=== PATIENT | female | born 1965 | race Caucasian/White ===

== ENCOUNTER 2018-03-04 12:31 | Inpatient (IN) | payer OTHER, SELFPAY ==
[2018-03-04] VITALS (8 sets, daily range): BP systolic 120–152; BP diastolic 71–106; PULSE 85–98; RESP 16–19; TEMP 36.4–36.9; O2SAT 98–100; BMI 32.8; BMI 33.9
--- NOTE | 2018-03-04 13:03 | EKG12_ITS ---
Test Reason : SUBS ABUSE Blood Pressure : / mmHG Vent. Rate : 084 BPM Atrial Rate : 084 BPM P-R Int : 196 ms QRS Dur : 086 ms QT Int : 400 ms P-R-T Axes : 053 030 062 degrees QTc Int : 472 ms Normal sinus rhythm Nonspecific ST segment abnormality Confirmed by SANTIAGO PONCE, CHARISSE ([id number]), scientific editor JOSEF YI ([id number] on 03/07/2018 1:15:11 PM Referred By: QAMAR Confirmed By:CHARISSE HENDERSON MD
--- NOTE | 2018-03-04 13:07 | ED.RN ---
NO OLD EKG'S IN MUSE.
[2018-03-04] MEDS: Ondansetron ODT 4 MG Tablet PO (13:10)
[2018-03-04] MEDS: LORazepam 1 MG Tablet PO (13:11)
[2018-03-04 13:58] LABS: Absolute Lymphocyte Count 1.01 X10^3/ul (0.83-4.51); Absolute Neutrophil Count 6.5 X10^3/uL (2.0-7.7); Basophil# 0.03 X10^3/uL; Basophil% 0.4 % (0-1); Eosinophil# 0.05 X10^3/uL; Eosinophils% 0.6 % (0-5); Hematocrit 39.1 % (37-47); Hemoglobin 14.1 g/dl (12.0-15.0); Lymphocyte # 1.01 X10^3/ul (4.0); Lymphocyte % 12.5 % (19-41); Mean Corp Hgb Conc 36.1 g/gl (32-36); Mean Corpuscular Hgb 31.8 pg (27.0-32.0); Mean Corpuscular Volume 88.3 fL (81-99); Mean Platelet Vol. 8.2 fl (6.2-12.0); Monocyte# 0.46 X10^3/uL; Monocyte% 5.7 % (0-10); Neutrophil # 6.48 X10^3/uL (2.7-7.7); Neutrophil % 80.4 % (47-70); POSITIVE COUNT NO; POSITIVE DIFFERENTIAL NO; POSITIVE MORPHOLOGY NO; Platelet Count 418 K/mm3 (150-450); RBC Distribution Width CV 12.6 % (11.6-14.6); RBC Distribution Width SD 40.4 fl (35.1-43.9); Red Blood Count 4.43 M/mm3 (4.2-5.4); White Blood Count 8.1 K/mm3 (4.4-11.0)
[2018-03-04 14:18] LABS: ALB/GLOB Ratio 1.1 RATIO (0.9-2.4); AST(SGOT) 69 U/L (15-37); Alanine Aminotransfer ALT/SGPT 48 U/L (13-56); Albumin, Serum 3.9 g/dL (3.2-5.0); Alkaline Phosphatase 99 U/L (45-117); Anion Gap 11 (5-15); BUN 3 mg/dL (7-18); BUN/Creat Ratio 4.3 RATIO (10-20); Calcium,Total 8.7 mg/dL (8.5-10.1); Chloride 80 mmol/L (98-107); EST Glomerular Filtration Rate 93 mL/min (>60); Est Glom Filt Rate - Afr Amer 113 mL/min (>60); Estimated Creatinine Clearance 77.77 ml/min; Globulin 3.7 g/dL (2.2-4.2); Glucose 89 mg/dL (74-106); Potassium 5.2 mmol/L (3.5-5.1); Protein, Total 7.6 g/dL (6.4-8.2); Sodium Level 116 mmol/L (136-145)
--- NOTE | 2018-03-04 14:22 | RAD_ITS ---
STUDY: X-RAY - LUMBAR SPINE REASON FOR EXAM: Female, 52 years old. Back pain TECHNIQUE: 3 view(s) of the lumbar spine were obtained. COMPARISON: None FINDINGS: Normal lumbar lordosis. There is no substantial scoliosis. There is mild anterolisthesis of L3 on L4. Postoperative changes are seen at L3-L4 with interpedicular screws. Laminectomy changes are seen at L3, L4, and L5. There is multi-level degenerative disc disease with multi-level disc space narrowing. No acute fracture is seen. There is partial visualization of bilateral total hip arthroplasties. The soft tissue structures are unremarkable. RAD/Lumbar Spine 2 or 3 Views IMPRESSION: Postoperative changes at L3-L4. No acute bony abnormality. Electronically Signed: Khoa Cole DO at 14:46 EDT Tel , Service support ,
[2018-03-04 14:44] LABS: Bacteria 0 SEEN /hpf (None Seen); Mucous, Urine 0 SEEN /hpf (<or=2+); Red Blood Cells-Urine 0 SEEN /hpf (0-5)
[2018-03-04 14:45] LABS: Color, Urine Yellow (Yellow); Glucose, Dipstick Normal (Normal); Ketone-Dipstick Negative (Negative); Leukocyte Esterase-Dipstick 25 /ul (Negative); Nitrite-Dipstick Negative (Negative); Occult Blood-Urine Negative /ul (Negative); Protein-Dipstick 15 mg/dl (Negative); Urine Bilirubin Dipstick Negative (Negative); Urine Clarity Sl. Cloudy (Clear); Urine Urobilinogen Normal (Normal)
[2018-03-04 14:55] LABS: Squamous Epithelial Cells - UA 0-5 SEEN /hpf (5-10); White Blood Cells 0-5 SEEN /hpf (0-5)
[2018-03-04 15:04] LABS: Amphetamine Urine VISTA NEGATIVE (<1000 ng/mL); Barbiturate Urine VISTA NEGATIVE (< 200 ng/mL); Benzodiazepine Urine VISTA NEGATIVE (< 200 ng/mL); Cocaine Urine VISTA NEGATIVE (< 300 ng/mL); Ecstacy Urine VISTA NEGATIVE (< 500 ng/mL); Methadone Urine VISTA NEGATIVE (< 300 ng/mL); PCP Urine VISTA NEGATIVE (< 25 ng/mL); THC Urine VISTA NEGATIVE (< 50 ng/mL); Vista UDS pH Range 7
--- NOTE | 2018-03-04 15:05 | PCM.HP.STD ---
Problem List (1) Hyponatremia Status: Acute (2) Alcohol abuse Status: Chronic History of Present Illness Date of Admission: 03/04/18 Chief Complaint: alcohol detox The patient is a 52 year old F recently diagnosed hyponatremia, tension and hyperlipidemia and chronic alcohol abuse.. Patient was admitted by the ED on 724. She had initially presented to [facility] both sent to the ED for medical clearance. Patient was found to have low sodium and so has been admitted to manage hyponatremia. Patient on no complaints and just wanted help to quit drinking. She denied any fever or chills, any cough or chest pain, shortness of breath, abdominal pain, any diarrhea vomiting. She has no history of seizures. Of note patient was recently admitted at [facility] for alcohol detox and was told that she had electrolyte disorders namely low sodium and elevated potassium. She says she was treated for that and improved and she was discharged. Vitals were noted for temperature of 97.8, blood pressure of 152/106, pulse rate of 96 respiratory rate of 18. She was saturating at 99% on room air. Labs were significant for sodium of 116 and potassium of 5.2 as well as chloride of 80. CBC was unremarkable. Admitted to be managed for chronic hyponatremia and alcohol detox. [] Past Medical History Past Medical History (Chronic Problems): Chronic Problems Alcohol abuse (Chronic) Allergies No Known Allergies Allergy (Verified 03/04/18 12:34) Home Medications: Ambulatory Orders Medication Instructions Recorded Diclofenac [Voltaren] 75 mg PO BIDCM 03/04/18 Duloxetine HCl 60 mg PO QHS 03/04/18 Fenofibrate Nanocrystallized 160 mg PO QHS 03/04/18 [Triglide] Levothyroxine [Synthroid] 137 mcg PO DAILY 03/04/18 Losartan Potassium [Cozaar] 100 mg PO DAILY 03/04/18 Magic Mouth Wash 15 ml PO Q6H PRN PRN 03/04/18 Omeprazole 40 mg PO DAILY 03/04/18 Pravastatin [Pravachol] 20 mg PO QHS 03/04/18 Surgical History: - - Multiple back surgeries and bilateral hip replacement Psychiatric History: No pertinent psych hx 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 Lives: Alone Smoking Status: Former smoker Alcohol: Heavy - 36 12 oz CANS daily Drugs: None - *Family History Maternal History Items: Hypertension Paternal History Items: Heart Disease, Hypertension Review of Systems Constitutional: Denies: Chills, Fever, Weight Change Eyes: Denies: Blurred vision HEENT: Denies: Head Aches, Sinus Congestion, Sinus Drainage Cardiovascular: Denies: Chest Pain, Chest Tightness, Heaviness, Light Headedness, Orthopnea, Palpitations, Syncope Respiratory: Denies: Cough, Shortness of Breath, Shortness of breath at rest, Shortness of breath upon exertion, Sputum production, Wheezing Gastrointestinal: Denies: Abdominal Pain, Nausea, Vomiting Genitourinary: Denies: Dysuria Musculoskeletal: Denies: Joint Pain, Joint Tenderness Skin: Denies: Rash, Wounds Neurological: Denies: Numbness, Tingling, Focal weakness Psychiatric: Denies: Anxiety, Depression, Homicidal Ideations, Suicidal Ideations Hematologic/ Lymphatic: Denies: Easy Bruising, Easy Bleeding VTE Information - Inpt Only VTE Present on Admission: No VTE Mechan Device Prophylaxis: None VTE Pharm Prophylaxis ordered?: Yes Patient Problems: Active and Suspected Problems Hyponatremia (Acute) - Physical Exam General: Alert, Oriented x3, Cooperative, No apparent distress HEENT: Atraumatic, PERRLA, EOMI, Normocephalic Oral: Moist Mucosa Neck: Supple, No JVD, Negative Carotid Bruits Lungs: Clear to auscultation, Normal air movement Cardiovascular: Regular rate, Regular Rhythm, Normal S1, Normal S2, No murmurs Abdomen: Bowel Sounds Present, Soft, Non Tender, Non-Distended, No Hepato-splenomegaly Extremities: No clubbing, No cyanosis, No edema, Capillary Refill Less than 3 Seconds Skin: - - multiple resolving scabs on her extremities- says it is due to reaction to her laundry soap Musculoskeletal: No Tenderness to Palpation of Joints or Extremities Lymphatic: No Cervical, Supraclavicular, or Inguinal Adenopathy Neurological: Cranial nerves II-XII grossly intact Psych/Mental Status: Normal Affect, Appropriate, Alert and oriented to time, place, person, mood and affect Vital Signs Temp Pulse Resp BP Pulse Ox 97.8 F 96 18 152/106 H 99 03/04/18 12:34 03/04/18 14:51 03/04/18 14:51 03/04/18 14:51 03/04/18 14:51 Oxygen Delivery Method Room Air Weight: 185 lb Body Mass Index (BMI) 32.8 Laboratory Tests Past 24 Hrs 03/04/18 03/04/18 03/04/18 13:45 13:45 13:45 WBC 8.1 RBC 4.43 Hgb 14.1 Hct 39.1 MCV 88.3 MCH 31.8 MCHC 36.1 H RDW 12.6 RDW Differential 40.4 Plt Count 418 MPV 8.2 Immature Gran % (Auto) 0.400 Neut % (Auto) 80.4 H Lymph % (Auto) 12.5 L [place] % (Auto) 5.7 Eos % (Auto) 0.6 Baso % (Auto) 0.4 Absolute Neuts (auto) 6.5 Absolute Lymphs (auto) 1.01 Total Counted Not Reportable Sodium 116 L* Potassium 5.2 H Chloride 80 L Carbon Dioxide 25.0 Anion Gap 11 BUN 3 L Creatinine 0.70 Estim Creat Clear Calc 77.77 Est GFR (MDRD) Af Amer 113 Est GFR (MDRD) Non-Af 93 BUN/Creatinine Ratio 4.3 L Glucose 89 Serum Osmolality Calcium 8.7 Total Bilirubin 0.70 AST 69 H ALT 48 Alkaline Phosphatase 99 Total Protein 7.6 Albumin 3.9 Globulin 3.7 Albumin/Globulin Ratio 1.1 Cortisol Urine Color Urine Clarity Urine pH Ur Specific [place] Urine Protein Urine Glucose (UA) Urine Ketones Urine Occult Blood Urine Nitrite Urine Bilirubin Urine Urobilinogen Ur Leukocyte Esterase Urine RBC Urine WBC Ur Squamous Epith Cells Urine Bacteria Urine Mucus Urine Opiates Screen Urine Methadone Screen Ur Barbiturates Screen Ur Phencyclidine Scrn Ur Amphetamines Screen U Methamphetamin-MDMA U Benzodiazepines Scrn Urine Cocaine Screen U Cannabinoids Screen Ur Drug Screen Comment Ethyl Alcohol 6.0 03/04/18 03/04/18 03/04/18 13:45 13:45 14:40 WBC RBC Hgb Hct MCV MCH MCHC RDW RDW Differential Plt Count MPV Immature Gran % (Auto) Neut % (Auto) Lymph % (Auto) [place] % (Auto) Eos % (Auto) Baso % (Auto) Absolute Neuts (auto) Absolute Lymphs (auto) Total Counted Sodium Potassium Chloride Carbon Dioxide Anion Gap BUN Creatinine Estim Creat Clear Calc Est GFR (MDRD) Af Amer Est GFR (MDRD) Non-Af BUN/Creatinine Ratio Glucose Serum Osmolality Pending Calcium Total Bilirubin AST ALT Alkaline Phosphatase Total Protein Albumin Globulin Albumin/Globulin Ratio Cortisol Pending Urine Color Urine Clarity Urine pH Ur Specific [place] Urine Protein Urine Glucose (UA) Urine Ketones Urine Occult Blood Urine Nitrite Urine Bilirubin Urine Urobilinogen Ur Leukocyte Esterase Urine RBC Urine WBC Ur Squamous Epith Cells Urine Bacteria Urine Mucus Urine Opiates Screen NEGATIVE Urine Methadone Screen NEGATIVE Ur Barbiturates Screen NEGATIVE Ur Phencyclidine Scrn NEGATIVE Ur Amphetamines Screen NEGATIVE U Methamphetamin-MDMA NEGATIVE U Benzodiazepines Scrn NEGATIVE Urine Cocaine Screen NEGATIVE U Cannabinoids Screen NEGATIVE Ur Drug Screen Comment Ethyl Alcohol 03/04/18 14:40 WBC RBC Hgb Hct MCV MCH MCHC RDW RDW Differential Plt Count MPV Immature Gran % (Auto) Neut % (Auto) Lymph % (Auto) [place] % (Auto) Eos % (Auto) Baso % (Auto) Absolute Neuts (auto) Absolute Lymphs (auto) Total Counted Sodium Potassium Chloride Carbon Dioxide Anion Gap BUN Creatinine Estim Creat Clear Calc Est GFR (MDRD) Af Amer Est GFR (MDRD) Non-Af BUN/Creatinine Ratio Glucose Serum Osmolality Calcium Total Bilirubin AST ALT Alkaline Phosphatase Total Protein Albumin Globulin Albumin/Globulin Ratio Cortisol Urine Color Yellow Urine Clarity Sl. Cloudy Urine pH 7.0 Ur Specific [place] 1.010 Urine Protein 15 H Urine Glucose (UA) Normal Urine Ketones Negative Urine Occult Blood Negative Urine Nitrite Negative Urine Bilirubin Negative Urine Urobilinogen Normal Ur Leukocyte Esterase 25 H Urine RBC 0 SEEN Urine WBC 0-5 SEEN Ur Squamous Epith Cells 0-5 SEEN Urine Bacteria 0 SEEN Urine Mucus 0 SEEN Urine Opiates Screen Urine Methadone Screen Ur Barbiturates Screen Ur Phencyclidine Scrn Ur Amphetamines Screen U Methamphetamin-MDMA U Benzodiazepines Scrn Urine Cocaine Screen U Cannabinoids Screen Ur Drug Screen Comment Ethyl Alcohol Diagnostic Data Lumbar Spine X-Ray 03/04/18 14:22 IMPRESSION: Postoperative changes at L3-L4. No acute bony abnormality. Electronically Signed: Khoa Cole DO at 14:46 EDT Tel , Service support , Assessment/Plan All Active Problems Hyponatremia (Acute) Male with extensive history of alcohol abuse and hypothyroidism presenting with hyponatremia and for detox. 1. Hyponatremia probably due to beer potomania vs hypothyroidism likely hypotonic. Patient also appears euvolemic. Patient was diagnosed with hyponatremia and currently on hospital about a week ago and treated for it. Na is 116 today. Na is 5.2 No History of seizures. will check Serum osmolality, serum cortisol level and TSH-serum osmolality came back low at 242, with TSH markedly elevated at 11.40 in light of hyponatremia and hyperkalemia, hypoaldosteronism is also a possibility. will give IVF NS @ 250cc/hr, aiming for correction of 6-8 increase in sodium levels over 24 hours. will check [id number]. will consult nephrology 2. ALcohol abuse drinks 36 of the 12 oz cans daily. tried detox before but defaulted will put on alcohol withdrawal protocol per [facility] protocol will monitor CIWA score 3. Hyperkalemia: K is 5.2. EKG showed no acute changes. Will give kayexalate and monitor 4. Hypothyroidism: on synthroid 137mcg daily. WIll check TSH in light of hyponatremia and adjust dose as needed. Patient claims compliance with dose 5. Hypertension: on losartan 6. Hyperlipidemia: on statin. 7. Chronic back pain s/p multiple back surgeries: on diclofenac and duloxetine 8. DVT prophylaxis: heparin Code status: Full code. Patient counselled extensively about different types of code status and the meanings and implications. Patient elects to be full code. This note was generated with [employer] dictation software. It may contain incorrect words, spelling, and punctuation that were not noted in checking the note before signing. Code Visit Inpatient E&M: 04645 Init Hosp L3 Procedures: 15563 Advncd Care Plan 30 Min
--- NOTE | 2018-03-04 15:14 | NURSING ---
Pepper notified patient may transfer to PCU.
--- NOTE | 2018-03-04 15:19 | HP.PCM_ITS ---
Problem List (1) Hyponatremia Status: Acute (2) Alcohol abuse Status: Chronic History of Present Illness Date of Admission: 03/04/18 Chief Complaint: alcohol detox The patient is a 52 year old F recently diagnosed hyponatremia, tension and hyperlipidemia and chronic alcohol abuse.. Patient was admitted by the ED on 724. She had initially presented to [facility] both sent to the ED for medical clearance. Patient was found to have low sodium and so has been admitted to manage hyponatremia. Patient on no complaints and just wanted help to quit drinking. She denied any fever or chills, any cough or chest pain, shortness of breath, abdominal pain, any diarrhea vomiting. She has no history of seizures. Of note patient was recently admitted at [facility] for alcohol detox and was told that she had electrolyte disorders namely low sodium and elevated potassium. She says she was treated for that and improved and she was discharged. Vitals were noted for temperature of 97.8, blood pressure of 152/106, pulse rate of 96 respiratory rate of 18. She was saturating at 99% on room air. Labs were significant for sodium of 116 and potassium of 5.2 as well as chloride of 80. CBC was unremarkable. Admitted to be managed for chronic hyponatremia and alcohol detox. [] Past Medical History Past Medical History (Chronic Problems): Chronic Problems Alcohol abuse (Chronic) Allergies No Known Allergies Allergy (Verified 03/04/18 12:34) Home Medications: Ambulatory Orders Medication Instructions Recorded Diclofenac [Voltaren] 75 mg PO BIDCM 03/04/18 Duloxetine HCl 60 mg PO QHS 03/04/18 Fenofibrate Nanocrystallized 160 mg PO QHS 03/04/18 [Triglide] Levothyroxine [Synthroid] 137 mcg PO DAILY 03/04/18 Losartan Potassium [Cozaar] 100 mg PO DAILY 03/04/18 Magic Mouth Wash 15 ml PO Q6H PRN PRN 03/04/18 Omeprazole 40 mg PO DAILY 03/04/18 Pravastatin [Pravachol] 20 mg PO QHS 03/04/18 Surgical History: - - Multiple back surgeries and bilateral hip replacement Psychiatric History: No pertinent psych hx 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 Lives: Alone Smoking Status: Former smoker Alcohol: Heavy - 36 12 oz CANS daily Drugs: None - *Family History Maternal History Items: Hypertension Paternal History Items: Heart Disease, Hypertension Review of Systems Constitutional: Denies: Chills, Fever, Weight Change Eyes: Denies: Blurred vision HEENT: Denies: Head Aches, Sinus Congestion, Sinus Drainage Cardiovascular: Denies: Chest Pain, Chest Tightness, Heaviness, Light Headedness , Orthopnea, Palpitations, Syncope Respiratory: Denies: Cough, Shortness of Breath, Shortness of breath at rest, Shortness of breath upon exertion, Sputum production, Wheezing Gastrointestinal: Denies: Abdominal Pain, Nausea, Vomiting Genitourinary: Denies: Dysuria Musculoskeletal: Denies: Joint Pain, Joint Tenderness Skin: Denies: Rash, Wounds Neurological: Denies: Numbness, Tingling, Focal weakness Psychiatric: Denies: Anxiety, Depression, Homicidal Ideations, Suicidal Ideations Hematologic/ Lymphatic: Denies: Easy Bruising, Easy Bleeding VTE Information - Inpt Only VTE Present on Admission: No VTE Mechan Device Prophylaxis: None VTE Pharm Prophylaxis ordered?: Yes Patient Problems: Active and Suspected Problems Hyponatremia (Acute) - Physical Exam General: Alert, Oriented x3, Cooperative, No apparent distress HEENT: Atraumatic, PERRLA, EOMI, Normocephalic Oral: Moist Mucosa Neck: Supple, No JVD, Negative Carotid Bruits Lungs: Clear to auscultation, Normal air movement Cardiovascular: Regular rate, Regular Rhythm, Normal S1, Normal S2, No murmurs Abdomen: Bowel Sounds Present, Soft, Non Tender, Non-Distended, No Hepato- splenomegaly Extremities: No clubbing, No cyanosis, No edema, Capillary Refill Less than 3 Seconds Skin: - - multiple resolving scabs on her extremities- says it is due to reaction to her laundry soap Musculoskeletal: No Tenderness to Palpation of Joints or Extremities Lymphatic: No Cervical, Supraclavicular, or Inguinal Adenopathy Neurological: Cranial nerves II-XII grossly intact Psych/Mental Status: Normal Affect, Appropriate, Alert and oriented to time, place, person, mood and affect Vital Signs Temp Pulse Resp BP Pulse Ox 97.8 F 96 18 152/106 H 99 03/04/18 12:34 03/04/18 14:51 03/04/18 14:51 03/04/18 14:51 03/04/18 14:51 Oxygen Delivery Method Room Air Weight: 185 lb Body Mass Index (BMI) 32.8 Laboratory Tests Past 24 Hrs 03/04/18 03/04/18 03/04/18 13:45 13:45 13:45 WBC 8.1 RBC 4.43 Hgb 14.1 Hct 39.1 MCV 88.3 MCH 31.8 MCHC 36.1 H RDW 12.6 RDW Differential 40.4 Plt Count 418 MPV 8.2 Immature Gran % (Auto) 0.400 Neut % (Auto) 80.4 H Lymph % (Auto) 12.5 L [place] % (Auto) 5.7 Eos % (Auto) 0.6 Baso % (Auto) 0.4 Absolute Neuts (auto) 6.5 Absolute Lymphs (auto) 1.01 Total Counted Not Reportable Sodium 116 L* Potassium 5.2 H Chloride 80 L Carbon Dioxide 25.0 Anion Gap 11 BUN 3 L Creatinine 0.70 Estim Creat Clear Calc 77.77 Est GFR (MDRD) Af Amer 113 Est GFR (MDRD) Non-Af 93 BUN/Creatinine Ratio 4.3 L Glucose 89 Serum Osmolality Calcium 8.7 Total Bilirubin 0.70 AST 69 H ALT 48 Alkaline Phosphatase 99 Total Protein 7.6 Albumin 3.9 Globulin 3.7 Albumin/Globulin Ratio 1.1 Cortisol Urine Color Urine Clarity Urine pH Ur Specific [place] Urine Protein Urine Glucose (UA) Urine Ketones Urine Occult Blood Urine Nitrite Urine Bilirubin Urine Urobilinogen Ur Leukocyte Esterase Urine RBC Urine WBC Ur Squamous Epith Cells Urine Bacteria Urine Mucus Urine Opiates Screen Urine Methadone Screen Ur Barbiturates Screen Ur Phencyclidine Scrn Ur Amphetamines Screen U Methamphetamin-MDMA U Benzodiazepines Scrn Urine Cocaine Screen U Cannabinoids Screen Ur Drug Screen Comment Ethyl Alcohol 6.0 03/04/18 03/04/18 03/04/18 13:45 13:45 14:40 WBC RBC Hgb Hct MCV MCH MCHC RDW RDW Differential Plt Count MPV Immature Gran % (Auto) Neut % (Auto) Lymph % (Auto) [place] % (Auto) Eos % (Auto) Baso % (Auto) Absolute Neuts (auto) Absolute Lymphs (auto) Total Counted Sodium Potassium Chloride Carbon Dioxide Anion Gap BUN Creatinine Estim Creat Clear Calc Est GFR (MDRD) Af Amer Est GFR (MDRD) Non-Af BUN/Creatinine Ratio Glucose Serum Osmolality Pending Calcium Total Bilirubin AST ALT Alkaline Phosphatase Total Protein Albumin Globulin Albumin/Globulin Ratio Cortisol Pending Urine Color Urine Clarity Urine pH Ur Specific [place] Urine Protein Urine Glucose (UA) Urine Ketones Urine Occult Blood Urine Nitrite Urine Bilirubin Urine Urobilinogen Ur Leukocyte Esterase Urine RBC Urine WBC Ur Squamous Epith Cells Urine Bacteria Urine Mucus Urine Opiates Screen NEGATIVE Urine Methadone Screen NEGATIVE Ur Barbiturates Screen NEGATIVE Ur Phencyclidine Scrn NEGATIVE Ur Amphetamines Screen NEGATIVE U Methamphetamin-MDMA NEGATIVE U Benzodiazepines Scrn NEGATIVE Urine Cocaine Screen NEGATIVE U Cannabinoids Screen NEGATIVE Ur Drug Screen Comment Ethyl Alcohol 03/04/18 14:40 WBC RBC Hgb Hct MCV MCH MCHC RDW RDW Differential Plt Count MPV Immature Gran % (Auto) Neut % (Auto) Lymph % (Auto) [place] % (Auto) Eos % (Auto) Baso % (Auto) Absolute Neuts (auto) Absolute Lymphs (auto) Total Counted Sodium Potassium Chloride Carbon Dioxide Anion Gap BUN Creatinine Estim Creat Clear Calc Est GFR (MDRD) Af Amer Est GFR (MDRD) Non-Af BUN/Creatinine Ratio Glucose Serum Osmolality Calcium Total Bilirubin AST ALT Alkaline Phosphatase Total Protein Albumin Globulin Albumin/Globulin Ratio Cortisol Urine Color Yellow Urine Clarity Sl. Cloudy Urine pH 7.0 Ur Specific [place] 1.010 Urine Protein 15 H Urine Glucose (UA) Normal Urine Ketones Negative Urine Occult Blood Negative Urine Nitrite Negative Urine Bilirubin Negative Urine Urobilinogen Normal Ur Leukocyte Esterase 25 H Urine RBC 0 SEEN Urine WBC 0-5 SEEN Ur Squamous Epith Cells 0-5 SEEN Urine Bacteria 0 SEEN Urine Mucus 0 SEEN Urine Opiates Screen Urine Methadone Screen Ur Barbiturates Screen Ur Phencyclidine Scrn Ur Amphetamines Screen U Methamphetamin-MDMA U Benzodiazepines Scrn Urine Cocaine Screen U Cannabinoids Screen Ur Drug Screen Comment Ethyl Alcohol Diagnostic Data Lumbar Spine X-Ray 03/04/18 14:22 IMPRESSION: Postoperative changes at L3-L4. No acute bony abnormality. Electronically Signed: Khoa Cole DO at 14:46 EDT Tel , Service support , Assessment/Plan All Active Problems Hyponatremia (Acute) Male with extensive history of alcohol abuse and hypothyroidism presenting with hyponatremia and for detox. 1. Hyponatremia probably due to beer potomania vs hypothyroidism * likely hypotonic. Patient also appears euvolemic. Patient was diagnosed with hyponatremia and currently on hospital about a week ago and treated for it. * Na is 116 today. Na is 5.2 * No History of seizures. * will check Serum osmolality, serum cortisol level and TSH-serum osmolality came back low at 242, with TSH markedly elevated at 11.40 * in light of hyponatremia and hyperkalemia, hypoaldosteronism is also a possibility. * will give IVF NS @ 250cc/hr, aiming for correction of 6-8 increase in sodium levels over 24 hours. * will check [id number]. * will consult nephrology * 2. ALcohol abuse * drinks 36 of the 12 oz cans daily. * tried detox before but defaulted * will put on alcohol withdrawal protocol per [facility] protocol * will monitor CIWA score * 3. Hyperkalemia: K is 5.2. EKG showed no acute changes. Will give kayexalate and monitor 4. Hypothyroidism: on synthroid 137mcg daily. WIll check TSH in light of hyponatremia and adjust dose as needed. Patient claims compliance with dose 5. Hypertension: on losartan 6. Hyperlipidemia: on statin. 7. Chronic back pain s/p multiple back surgeries: on diclofenac and duloxetine 8. DVT prophylaxis: heparin Code status: Full code. Patient counselled extensively about different types of code status and the meanings and implications. Patient elects to be full code. This note was generated with [employer] dictation software. It may contain incorrect words, spelling, and punctuation that were not noted in checking the note before signing. Code Visit Inpatient E&M: 81939 Init Hosp L3 Procedures: 53142 Advncd Care Plan 30 Min
--- NOTE | 2018-03-04 15:22 | ED.DCSUM_ITS ---
- ER Visit Summary Date of Service: 03/04/18 Chief Complaint: Alcohol withdrawal History of Present Illness: The patient is a 52 F presents with her family and [facility] counselor for alcohol withdrawal. She drinks 36 beers per day for many years. Her last drink was this morning at 3 AM. She has used marijuana in the past but denies any other drug use. She presents with headache, sweats, tremor, anxiety, nausea, and diffuse paresthesias. Her CIWA score is 36. She is not suicidal or homicidal. She also reports some low back pain. She has a history of chronic back pain. Denies injuries. Denies new weakness or numbness. Denies change in bowel or bladder. Denies fevers. Physical Examination: Vital signs unremarkable. Afebrile. Head and neck atraumatic. Heart regular. Lungs clear. Abdomen soft. She has a bilateral intention tremor. Patient also has multiple scabs and excoriated areas from picking gain of her extremities. She is alert and oriented. No focal or lateralizing neurologic abnormalities grossly. Test Results: CBC normal. Sodium 116, potassium 5.2, chloride 80. Liver panel unremarkable. Urinalysis unremarkable. Tox negative. Alcohol negative. EKG showed sinus rhythm at a rate of 84. X-rays of her lumbar spine showed postoperative changes but nothing acute. Emergency Department Course and Treatment: Patient treated with Zofran and Ativan while awaiting results. Patient was discussed with the hospitalist. I was concerned that she would require an ICU admission. The hospitalist reviewed her records. She has a history of hyponatremia and a prior workup for hyponatremia. She has been stable. The hospitalist recommended the medical floor. Patient will be admitted for further care. Treatment Plan: As above Disposition: Admission Impression: 1. Alcohol withdrawal 2. Hyponatremia 3. Lumbar back pain This note was generated with [employer] dictation software. It may contain incorrect words, spelling, and punctuation that were not noted in review of the chart prior to signing ED Disposition - Plan for ED Patient: Chief Complaint: Substance Abuse
[2018-03-04] MEDS: 0.9% Normal Saline 1,000 ML 250 ML IV ×2 (16:19→20:29)
[2018-03-04] MEDS: chlordiazePOXIDE 25 MG Capsule PO ×2 (16:20→21:45)
[2018-03-04] MEDS: Sodium Polystyrene Sulfonate 15 GM/60 ML UDC 30 GM PO (16:20)
[2018-03-04 16:35] LABS: Osmolality, Serum 242 mOsm/KG (275-295)
[2018-03-04] MEDS: Diclofenac 75 MG Tablet PO (17:40)
[2018-03-04] MEDS: Methocarbamol 750 MG Tablet PO (18:44)
[2018-03-04] MEDS: hydrOXYzine PAM 25 MG Capsule 50 MG PO (18:44)
[2018-03-04] MEDS: Ondansetron 4 MG/2 ML Vial IV (19:12)
[2018-03-04 20:13] LABS: Urine Sodium 23 mmol/L (Not Establ.)
[2018-03-04 20:41] LABS: Osmolality, Urine 194 mOsm/KG
[2018-03-04 21:31] LABS: Anion Gap 10 (5-15); BUN 7 mg/dL (7-18); BUN/Creat Ratio 7.8 RATIO (10-20); Calcium,Total 7.9 mg/dL (8.5-10.1); Chloride 87 mmol/L (98-107); EST Glomerular Filtration Rate 70 mL/min (>60); Est Glom Filt Rate - Afr Amer 84 mL/min (>60); Estimated Creatinine Clearance 63.14 ml/min; Glucose 96 mg/dL (74-106); Potassium 4.2 mmol/L (3.5-5.1); Sodium Level 123 mmol/L (136-145)
--- NOTE | 2018-03-04 21:39 | NURSING ---
Giving scheduled Librium at this time.
[2018-03-04] MEDS: DULoxetine Hcl 60 MG Capsule PO (21:44)
[2018-03-04] MEDS: Pravastatin 20 MG Tablet PO (21:45)
[2018-03-04] MEDS: Mag Hydrox/Al Hydrox/Simeth 30 ML UDC 7.5 ML PO (21:54)
[2018-03-04] MEDS: DiphenhydrAMINE 12.5 MG/5 ML UDC 18.75 MG PO (21:55)
[2018-03-05] VITALS (10 sets, daily range): BP systolic 117–143; BP diastolic 73–88; PULSE 91–100; RESP 12–20; TEMP 36.2–36.6; O2SAT 94–99
[2018-03-05 00:53] LABS: Anion Gap 11 (5-15); BUN 8 mg/dL (7-18); BUN/Creat Ratio 10.4 RATIO (10-20); Calcium,Total 7.8 mg/dL (8.5-10.1); Chloride 93 mmol/L (98-107); Creatinine, Serum 0.77 mg/dL (0.55-1.02); EST Glomerular Filtration Rate 84 mL/min (>60); Est Glom Filt Rate - Afr Amer 101 mL/min (>60); Glucose 110 mg/dL (74-106); Sodium Level 127 mmol/L (136-145)
[2018-03-05] MEDS: 0.9% Normal Saline 1,000 ML 150 ML IV ×4 (01:23→21:42)
[2018-03-05] MEDS: DiphenhydrAMINE 25 MG Capsule PO (03:18)
[2018-03-05] MEDS: Loratadine 10 MG Tablet PO (03:18)
[2018-03-05] MEDS: chlordiazePOXIDE 25 MG Capsule PO ×3 (03:19→17:21)
[2018-03-05 05:38] LABS: Absolute Lymphocyte Count 0.86 X10^3/ul (0.83-4.51); Absolute Neutrophil Count 3.3 X10^3/uL (2.0-7.7); Basophil# 0.02 X10^3/uL; Basophil% 0.4 % (0-1); Eosinophil# 0.07 X10^3/uL; Eosinophils% 1.6 % (0-5); Hematocrit 34.1 % (37-47); Lymphocyte # 0.86 X10^3/ul (4.0); Lymphocyte % 19.1 % (19-41); Mean Corp Hgb Conc 35.2 g/gl (32-36); Mean Corpuscular Hgb 32.1 pg (27.0-32.0); Mean Corpuscular Volume 91.2 fL (81-99); Mean Platelet Vol. 8.6 fl (6.2-12.0); Monocyte# 0.24 X10^3/uL; Monocyte% 5.3 % (0-10); Neutrophil # 3.31 X10^3/uL (2.7-7.7); Neutrophil % 73.4 % (47-70); Platelet Count 336 K/mm3 (150-450); RBC Distribution Width CV 12.9 % (11.6-14.6); RBC Distribution Width SD 41.9 fl (35.1-43.9); Red Blood Count 3.74 M/mm3 (4.2-5.4); White Blood Count 4.5 K/mm3 (4.4-11.0)
[2018-03-05 05:42] LABS: POSITIVE COUNT NO; POSITIVE DIFFERENTIAL NO; POSITIVE MORPHOLOGY NO
[2018-03-05] MEDS: Levothyroxine 150 MCG Tablet PO (05:42)
[2018-03-05] MEDS: Methocarbamol 750 MG Tablet PO ×3 (05:42→21:43)
[2018-03-05 05:54] LABS: Anion Gap 9 (5-15); BUN 7 mg/dL (7-18); BUN/Creat Ratio 11.9 RATIO (10-20); Calcium,Total 7.7 mg/dL (8.5-10.1); Chloride 98 mmol/L (98-107); Creatinine, Serum 0.59 mg/dL (0.55-1.02); EST Glomerular Filtration Rate 114 mL/min (>60); Est Glom Filt Rate - Afr Amer 138 mL/min (>60); Estimated Creatinine Clearance 96.32 ml/min; Glucose 86 mg/dL (74-106); Potassium 3.9 mmol/L (3.5-5.1); Sodium Level 134 mmol/L (136-145)
--- NOTE | 2018-03-05 09:06 | PCM.CONS.R ---
Consultation - Renal 03/05/18 PCP/ Referring MD: Requesting physician: Dr Lewis Primary care physician: Out of Town Doctor Reason for Consultation:: Hyponatremia - History of Present Illness History of Present Illness: The patient is a 52 year old F who presented to ER with her family and [facility] counselor for alcohol withdrawal. She has a history of alcohol abuse past several years. She drinks 36 beers per day 12 oz each for many years. She has used marijuana in the past but denies IV drug use. She presents with headache, sweats, tremor, anxiety, nausea, and diffuse paresthesias. She is not suicidal or homicidal. She has a history of severe low back pain requiring 8 back surgeries, multiple epidural injections that has not helped. She states she drinks to mask the pain. She is on Voltaren at home for pain. Potassium was elevated at 5.2 on admit. She was profoundly hyponatremic with sodium at 116. She was recently hospitalized in [place] for low sodium at 100. Denied seizures. She denies headache, nausea, vomiting, no swelling. She has tremors from withdrawal. Hx of syncope in the past. Sodium level improved to 134 with NSS. TSH was 11.4 on admit. States she has been compliant with her medications. Her daughter is at bedside. - Allergies Allergies: Allergies No Known Allergies Allergy (Verified 03/04/18 12:34) - Current Medications Current Medications: Current Medications Al Hydroxide/Mg Hydroxide (Mylanta Ii) 7.5 ml PO Q6H PRN PRN PRN Reason: SORES Last Admin: 03/04/18 21:54 Dose: 7.5 ml Chlordiazepoxide (Librium) 50 mg PO Q6H ROSHAN PRN Reason: Taper Stop: 03/07/18 17:59 Last Admin: 03/05/18 03:19 Dose: 50 mg Diclofenac Sodium (Voltaren) 75 mg PO BIDCM [facility], [facility] Last Admin: 03/04/18 17:40 Dose: 75 mg Dicyclomine HCl (Bentyl) 20 mg PO Q6H PRN PRN PRN Reason: abdominal discomfort Diphenhydramine HCl (Benadryl Liquid) 18.75 mg PO Q6H PRN PRN PRN Reason: SORES Last Admin: 03/04/18 21:55 Dose: 18.75 mg Duloxetine HCl (Cymbalta) 60 mg PO QHS ROSHAN Last Admin: 03/04/18 21:44 Dose: 60 mg Enoxaparin Sodium (Lovenox) 40 mg SC DAILY@1000 [facility] Fenofibrate (Tricor) 145 mg PO DAILY [facility] Folic Acid ([facility]) [facility] Sodium Chloride () 1,000 mls @ 150 mls/hr IV .Q6H40M [facility] Last Admin: 03/05/18 08:01 Dose: 150 mls/hr Levothyroxine Sodium (Synthroid) 150 mcg PO DAILY@0600 [facility] Last Admin: 03/05/18 05:42 Dose: 150 mcg Loratadine (Claritin) 10 mg PO DAILY [facility] Last Admin: 03/05/18 03:18 Dose: 10 mg Lorazepam (Ativan) 1 mg IV Q4H PRN PRN PRN Reason: Severe Anxiety Losartan Potassium (Cozaar) 100 mg PO DAILY [facility] Magnesium Hydroxide (Milk Of Magnesia) 30 ml PO DAILY PRN PRN PRN Reason: Constipation Methocarbamol (Methocarbamol) 750 mg PO Q6H PRN PRN PRN Reason: Muscle Aches Last Admin: 03/05/18 05:42 Dose: 750 mg Multivitamins (Multivitamin) 1 tablet [facility] Ondansetron HCl (Zofran) 4 mg IV Q6H PRN PRN PRN Reason: NAUSEA Last Admin: 03/04/18 19:12 Dose: 4 mg Pantoprazole Sodium (Protonix) 40 mg PO DAILY [facility] Pravastatin Sodium (Pravachol) 20 mg PO QHS [facility] Last Admin: 03/04/18 21:45 Dose: 20 mg Sodium Chloride () 5 - 30 ml IV UD PRN PRN Reason: SALINE FLUSH Thiamine HCl (Vitamin B1) [facility] - Past Medical History Past Medical History (Chronic Problems): Chronic Problems Alcohol abuse (Chronic) - Past Surgical History Surgical History: - - Multiple back surgeries and bilateral hip replacement - Social History Smoking Status: Former smoker Alcohol: Heavy - 36 12 oz CANS daily Drugs: None - Family History Maternal History Items: Hypertension Paternal History Items: Heart Disease, Hypertension Review of Systems Constitutional: Reports: Weakness, Fatigue. Denies: Anorexia, Chills, Fever HEENT: Denies: Head Aches Cardiovascular: Denies: Chest Pain, Edema Respiratory: Denies: Cough, Shortness of Breath Gastrointestinal: Denies: Abdominal Pain, Constipation, Diarrhea, Nausea, Vomiting Genitourinary: Denies: Dysuria Musculoskeletal: Reports: Back Pain Skin: Denies: Rash Neurological: Reports: Tremor. Denies: Balance problems, Seizures Psychiatric: Reports: Anxiety, Depression Hematologic/ Lymphatic: Denies: Anemia Patient Problems: Active and Suspected Problems Hyponatremia (Acute) - Physical Exam General: Alert, Oriented x3, Cooperative, No apparent distress HEENT: PERRLA, EOMI Oral: Dry Mucosa Neck: Supple Lungs: Clear to auscultation Cardiovascular: Regular rate Abdomen: Bowel Sounds Present, Soft, Non Tender, Non-Distended, Obese Extremities: No edema Skin: - - rubra, telangiectasia Musculoskeletal: No Muscle Wasting Neurological: Cranial nerves II-XII grossly intact, - - fine tremor Psych/Mental Status: Normal Affect, Appropriate, Alert and oriented to time, place, person, mood and affect Vital Signs Temp Pulse Resp BP Pulse Ox 97.8 F 97 18 128/79 H 97 03/05/18 08:06 03/05/18 08:06 03/05/18 08:06 03/05/18 08:06 03/05/18 08:06 Oxygen Delivery Method Room Air Weight: 89.6 kg Body Mass Index (BMI) 33.9 Intake and Output for Last 24 Hours 03/03/18 03/04/18 03/05/18 23:59 23:59 23:59 Intake Total 2550 / 2550 1149 / 1149 Balance 2550 / 2550 1149 / 1149 Laboratory Tests Past 24 Hrs 03/04/18 03/04/18 03/04/18 19:42 19:42 20:37 WBC RBC Hgb Hct MCV MCH MCHC RDW RDW Differential Plt Count MPV Immature Gran % (Auto) Neut % (Auto) Lymph % (Auto) Beckham % (Auto) Eos % (Auto) Baso % (Auto) Absolute Neuts (auto) Absolute Lymphs (auto) Total Counted Sodium 123 L Potassium 4.2 Chloride 87 L Carbon Dioxide 26.0 Anion Gap 10 BUN 7 Creatinine 0.90 Estim Creat Clear Calc 63.14 Est GFR (MDRD) Af Amer 84 Est GFR (MDRD) Non-Af 70 BUN/Creatinine Ratio 7.8 L Glucose 96 Calcium 7.9 L Free T4 Urine Osmolality 194 Ur Random Sodium 23 07/24/18 07/25/18 07/25/18 20:37 00:14 05:12 WBC 4.5 RBC 3.74 L Hgb 12.0 Hct 34.1 L MCV 91.2 MCH 32.1 H MCHC 35.2 RDW 12.9 RDW Differential 41.9 Plt Count 336 MPV 8.6 Immature Gran % (Auto) 0.200 Neut % (Auto) 73.4 H Lymph % (Auto) 19.1 Beckham % (Auto) 5.3 Eos % (Auto) 1.6 Baso % (Auto) 0.4 Absolute Neuts (auto) 3.3 Absolute Lymphs (auto) 0.86 Total Counted Not Reportable Sodium 127 L Potassium 4.0 Chloride 93 L Carbon Dioxide 23.0 Anion Gap 11 BUN 8 Creatinine 0.77 Estim Creat Clear Calc 73.80 Est GFR (MDRD) Af Amer 101 Est GFR (MDRD) Non-Af 84 BUN/Creatinine Ratio 10.4 Glucose 110 H Calcium 7.8 L Free T4 0.80 Urine Osmolality Ur Random Sodium 03/05/18 05:12 WBC RBC Hgb Hct MCV MCH MCHC RDW RDW Differential Plt Count MPV Immature Gran % (Auto) Neut % (Auto) Lymph % (Auto) Beckham % (Auto) Eos % (Auto) Baso % (Auto) Absolute Neuts (auto) Absolute Lymphs (auto) Total Counted Sodium 134 L Potassium 3.9 Chloride 98 Carbon Dioxide 27.0 Anion Gap 9 BUN 7 Creatinine 0.59 Estim Creat Clear Calc 96.32 Est GFR (MDRD) Af Amer 138 Est GFR (MDRD) Non-Af 114 BUN/Creatinine Ratio 11.9 Glucose 86 Calcium 7.7 L Free T4 Urine Osmolality Ur Random Sodium Clinical Impression(s) from Imaging Studies Lumbar Spine X-Ray 03/04/18 14:22 IMPRESSION: Postoperative changes at L3-L4. No acute bony abnormality. Electronically Signed: Khoa Cole DO at 14:46 EDT Tel , Service support , Assessment/Plan All Active Problems Hyponatremia (Acute) 1. Severe hyponatremia due to beer potomania. Recurrent events due to continued alcohol use. Consumes 36 beers a day 12oz each. That would equate to about 13L of fluids a day. Sodium improved from 116 to 134 today with NSS. Advised to stop drinking alcohol, risk of liver failure, seizures, . 2. Hypothyroid TSH 11.4. likely noncompliant with therapy 3. ETOH abuse. Arrange rehab/detox 4. Hyperkalemia likely due to hypoaldosterone effect from NSAID use. 5. Chronic low back pain s/p multiple surgeries, injections. Consider pain management clinic. 6. Morbid obesity
[2018-03-05] MEDS: Multivitamins,Therapeutic Tablet 1 TABLET PO (09:28)
[2018-03-05] MEDS: Folic Acid 1 MG Tablet PO (09:28)
[2018-03-05] MEDS: Diclofenac 75 MG Tablet PO ×2 (09:29→17:21)
[2018-03-05] MEDS: Losartan Potassium 100 MG Tablet PO (09:29)
[2018-03-05] MEDS: Pantoprazole Sodium 40 MG Tablet PO (09:29)
[2018-03-05] MEDS: Thiamine Hydrochloride 100 MG Tablet PO (09:29)
[2018-03-05] MEDS: Enoxaparin 40 MG/0.4 ML Syringe SC (09:29)
[2018-03-05] MEDS: Fenofibrate 145 MG Tablet PO (09:30)
[2018-03-05] MEDS: Ondansetron 4 MG/2 ML Vial IV ×2 (09:48→22:10)
[2018-03-05] MEDS: 0.9% NaCl Peripheral Flush Adult/Peds IV ×2 (09:48→15:13)
--- NOTE | 2018-03-05 10:45 | CASEMGMT ---
Saundra from [facility] spoke with her and is working on inpatient alcohol rehab. Ana GUZMAN MSW
--- NOTE | 2018-03-05 12:28 | PN_ITS ---
Patient Problems: Active and Suspected Problems Hyponatremia (Acute) Subjective: Patient seen and examined. States she feels improved today. Continues to complain of nausea, abdominal cramping. Denies further diarrhea. Wishes to go to inpatient rehab facility for alcohol abuse following discharge from medical stabilization program. She denies other complaints at this time. - Physical Exam General: Alert, Oriented x3, Cooperative, No apparent distress HEENT: Atraumatic, PERRLA, EOMI, Normocephalic Neck: Supple, No JVD, Negative Carotid Bruits Lungs: Clear to auscultation, Diminished Cardiovascular: Regular rate, Regular Rhythm, Normal S1, Normal S2, No murmurs Abdomen: Bowel Sounds Present, Soft, Non Tender, Non-Distended, Obese Extremities: No clubbing, No cyanosis, No edema, Capillary Refill Less than 3 Seconds Skin: - - Multiple scattered areas of scabbing throughout body due to patient picking at skin. Musculoskeletal: No Tenderness to Palpation of Joints or Extremities Neurological: Cranial nerves II-XII grossly intact, Neuro grossly intact Psych/Mental Status: Normal Affect, Appropriate Vital Signs Temp Pulse Resp BP Pulse Ox 97.8 F 92 18 128/79 H 97 03/05/18 08:06 03/05/18 11:00 03/05/18 08:06 03/05/18 08:06 03/05/18 08:06 Oxygen Delivery Method Room Air Weight: 197 lb 8.547 oz Body Mass Index (BMI) 33.9 Intake and Output for Last 24 Hours 03/03/18 03/04/18 03/05/18 23:59 23:59 23:59 Intake Total 2550 / 2550 2611 / 2611 Balance 2550 / 2550 2611 / 2611 Laboratory Tests Past 24 Hrs 03/04/18 03/04/18 03/04/18 19:42 19:42 20:37 WBC RBC Hgb Hct MCV MCH MCHC RDW RDW Differential Plt Count MPV Immature Gran % (Auto) Neut % (Auto) Lymph % (Auto) Dougherty % (Auto) Eos % (Auto) Baso % (Auto) Absolute Neuts (auto) Absolute Lymphs (auto) Total Counted Sodium 123 L Potassium 4.2 Chloride 87 L Carbon Dioxide 26.0 Anion Gap 10 BUN 7 Creatinine 0.90 Estim Creat Clear Calc 63.14 Est GFR (MDRD) Af Amer 84 Est GFR (MDRD) Non-Af 70 BUN/Creatinine Ratio 7.8 L Glucose 96 Calcium 7.9 L Free T4 Urine Osmolality 194 Ur Random Sodium 23 03/04/18 03/05/18 03/05/18 20:37 00:14 05:12 WBC 4.5 RBC 3.74 L Hgb 12.0 Hct 34.1 L MCV 91.2 MCH 32.1 H MCHC 35.2 RDW 12.9 RDW Differential 41.9 Plt Count 336 MPV 8.6 Immature Gran % (Auto) 0.200 Neut % (Auto) 73.4 H Lymph % (Auto) 19.1 Dougherty % (Auto) 5.3 Eos % (Auto) 1.6 Baso % (Auto) 0.4 Absolute Neuts (auto) 3.3 Absolute Lymphs (auto) 0.86 Total Counted Not Reportable Sodium 127 L Potassium 4.0 Chloride 93 L Carbon Dioxide 23.0 Anion Gap 11 BUN 8 Creatinine 0.77 Estim Creat Clear Calc 73.80 Est GFR (MDRD) Af Amer 101 Est GFR (MDRD) Non-Af 84 BUN/Creatinine Ratio 10.4 Glucose 110 H Calcium 7.8 L Free T4 0.80 Urine Osmolality Ur Random Sodium 03/05/18 05:12 WBC RBC Hgb Hct MCV MCH MCHC RDW RDW Differential Plt Count MPV Immature Gran % (Auto) Neut % (Auto) Lymph % (Auto) Dougherty % (Auto) Eos % (Auto) Baso % (Auto) Absolute Neuts (auto) Absolute Lymphs (auto) Total Counted Sodium 134 L Potassium 3.9 Chloride 98 Carbon Dioxide 27.0 Anion Gap 9 BUN 7 Creatinine 0.59 Estim Creat Clear Calc 96.32 Est GFR (MDRD) Af Amer 138 Est GFR (MDRD) Non-Af 114 BUN/Creatinine Ratio 11.9 Glucose 86 Calcium 7.7 L Free T4 Urine Osmolality Ur Random Sodium Medical Necessity - Tobacco Use Smoking Status: Former smoker Assessment/Plan All Active Problems Hyponatremia (Acute) 1. Beer protomania hyponatremia-improved with IV fluids. Sodium 116 on admission. Sodium today 134. Trend BMP. 2. Hyperkalemia-patient received Kayexalate. Resolved. 3. Alcohol abuse/alcohol withdrawal-patient is medically stable for medical stabilization program. Patient will be transferred to medical surgical unit to complete this. [facility] program making arrangements for patient to go to inpatient treatment facility at discharge. 4. Hypothyroidism-continue home Synthroid regimen. TSH 11.4. Free T4 0.8. 5. Hyperlipidemia-continue statin. 6. Depression-continue home fluoxetine regimen. 7. GERD-continue PPI. 8. Chronic back pain-previously on Voltaren regimen at home. Nephrology recommending discontinuation. Recommend follow-up with pain management. 9. Hypertension-continue home losartan regimen. DVT prophylaxis- Lovenox sc This patient was seen by ERNIE Salinas under the supervision of Dr. Medina.
--- NOTE | 2018-03-05 14:53 | CASEMGMT ---
Face to Face with patient for initial transition planning/care coordination assessment. RN RICARDO introduced self and role at [facility], pt voices understanding and consents to assessment at this time. Pt is lying in bed in no distress at this time. Pt is A/O x4 at this time and answers all questions appropriately at this time. Care providers, pharmacy, and demographics verified. See attached link. Pt voices no further concerns/needs at this time. Advised pt to ask for CM if any further questions/concerns/needs arise, voices understanding. PLAN: TBD [place] ERMELINDA SILVA
[2018-03-05] MEDS: Mag Hydrox/Al Hydrox/Simeth 30 ML UDC 7.5 ML PO ×2 (15:13→22:10)
[2018-03-05] MEDS: LORazepam 2 MG/ML Syringe 1 MG IV (15:13)
[2018-03-05] MEDS: DiphenhydrAMINE 12.5 MG/5 ML UDC 18.75 MG PO ×2 (15:23→22:07)
[2018-03-05] MEDS: DULoxetine Hcl 60 MG Capsule PO (21:41)
[2018-03-05] MEDS: Pravastatin 20 MG Tablet PO (21:41)
[2018-03-06] VITALS (11 sets, daily range): BP systolic 134–150; BP diastolic 76–108; PULSE 90–101; RESP 16–20; TEMP 36.1–36.7; O2SAT 97–100
[2018-03-06] MEDS: chlordiazePOXIDE 25 MG Capsule PO ×3 (03:00→16:44)
[2018-03-06] MEDS: Acetaminophen 325 MG Tablet 650 MG PO ×3 (04:06→21:55)
[2018-03-06] MEDS: Ondansetron 4 MG/2 ML Vial IV ×3 (04:07→22:13)
[2018-03-06] MEDS: 0.9% Normal Saline 1,000 ML 150 ML IV ×2 (04:08→11:32)
[2018-03-06] MEDS: Levothyroxine 150 MCG Tablet PO (06:19)
[2018-03-06 06:50] LABS: Anion Gap 8 (5-15); BUN 4 mg/dL (7-18); BUN/Creat Ratio 8.2 RATIO (10-20); Calcium,Total 7.9 mg/dL (8.5-10.1); Chloride 104 mmol/L (98-107); Creatinine, Serum 0.49 mg/dL (0.55-1.02); EST Glomerular Filtration Rate 142 mL/min (>60); Est Glom Filt Rate - Afr Amer 171 mL/min (>60); Estimated Creatinine Clearance 115.97 ml/min; Glucose 93 mg/dL (74-106); Potassium 3.8 mmol/L (3.5-5.1); Sodium Level 139 mmol/L (136-145)
[2018-03-06] MEDS: Mag Hydrox/Al Hydrox/Simeth 30 ML UDC 7.5 ML PO (08:25)
[2018-03-06] MEDS: DiphenhydrAMINE 12.5 MG/5 ML UDC 18.75 MG PO (08:25)
[2018-03-06] MEDS: Loratadine 10 MG Tablet PO (08:26)
[2018-03-06] MEDS: Losartan Potassium 100 MG Tablet PO (08:26)
[2018-03-06] MEDS: Multivitamins,Therapeutic Tablet 1 TABLET PO (08:27)
[2018-03-06] MEDS: Thiamine Hydrochloride 100 MG Tablet PO (08:27)
[2018-03-06] MEDS: Diclofenac 75 MG Tablet PO ×2 (08:27→16:44)
[2018-03-06] MEDS: Folic Acid 1 MG Tablet PO (08:27)
[2018-03-06] MEDS: Pantoprazole Sodium 40 MG Tablet PO (08:27)
[2018-03-06] MEDS: Fenofibrate 145 MG Tablet PO (08:27)
--- NOTE | 2018-03-06 08:51 | PCM.PN.BLA ---
Progress Note Sodium back to normal. Renal fxn stable. Will sign off.
[2018-03-06] MEDS: 0.9% NaCl Peripheral Flush Adult/Peds IV ×2 (10:26→22:14)
[2018-03-06] MEDS: Enoxaparin 40 MG/0.4 ML Syringe SC (10:32)
--- NOTE | 2018-03-06 12:25 | CASEMGMT ---
Addendum entered by [facility] 03/06/18 17:15: Spoke with Dr. Mitchell and pt will be ready for d/c tomorrow. 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 Dr. Mitchell, nursing, and pt made aware. Pt is agreeable. CAROLE Hobson Original Note: Social Work Received a message from Saundra in [facility] that pt will go to [facility] in [place], [place] for alcohol rehabilitation. DANYELLE spoke with GILDA Minor and discharge possible for tomorrow 03/07. Saundra notified and she will notify facility who will in turn set up transportation. CAROLE Hobson
[2018-03-06] MEDS: LORazepam 2 MG/ML Syringe 1 MG IV ×2 (13:43→22:05)
--- NOTE | 2018-03-06 14:59 | PN_ITS ---
Patient Problems: Active and Suspected Problems Hyponatremia (Acute) Subjective: Pt feels highly anxiuos, tremorous in core and hands, nauseous with dry heaves this AM. Did keep small amount of breakfast down. No auditory or visual hallucinations. - Physical Exam General: Alert, Oriented x3, Cooperative HEENT: Atraumatic, PERRLA, EOMI, Normocephalic Neck: Supple, No JVD, Negative Carotid Bruits Lungs: Clear to auscultation, Normal air movement Cardiovascular: Regular rate, No murmurs Abdomen: Bowel Sounds Present, Soft, Non Tender Extremities: No edema, Capillary Refill Less than 3 Seconds Skin: No rashes, No breakdown Musculoskeletal: No Tenderness to Palpation of Joints or Extremities Neurological: Cranial nerves II-XII grossly intact, - - tremor Upper ext. Psych/Mental Status: Normal Affect, Appropriate, Alert and oriented to time, place, person, mood and affect Vital Signs Temp Pulse Resp BP Pulse Ox 97.0 F L 90 16 135/94 H 99 03/06/18 13:45 03/06/18 13:45 03/06/18 13:45 03/06/18 13:45 03/06/18 13:45 Oxygen Delivery Method Room Air Weight: 197 lb 8.547 oz Body Mass Index (BMI) 33.9 Intake and Output for Last 24 Hours 03/04/18 03/05/18 03/06/18 23:59 23:59 23:59 Intake Total 2550 / 2550 4269 / 4269 3325 / 3325 Balance 2550 / 2550 4269 / 4269 3325 / 3325 Laboratory Tests Past 24 Hrs 03/06/18 05:55 Sodium 139 Potassium 3.8 Chloride 104 Carbon Dioxide 27.0 Anion Gap 8 BUN 4 L Creatinine 0.49 L Estim Creat Clear Calc 115.97 Est GFR (MDRD) Af Amer 171 Est GFR (MDRD) Non-Af 142 BUN/Creatinine Ratio 8.2 L Glucose 93 Calcium 7.9 L Medical Necessity - Tobacco Use Smoking Status: Former smoker Assessment/Plan All Active Problems Hyponatremia (Acute) 1. Hyponatremia 2/2 beer potomania - 36 beers per day. Resolved. Neprho following. 2. Acute alcohol withdrawal with symptoms as described above in subj. Continue librium. She has not taken prn ativan. Continue folate and thiamine. DC fluids. 3. Hyperkalemia - normal s/p kayex. 4. Hypothyroid - synthroid. 5. HLD - statin, tricor. 6. Depression - home meds 7. GERD - ppi 8. Chronic back pain - stable. Voltjordonncelina. 9. HTN - losartan. DVT ppx: lovenox DC planning: To [facility]. This patient was seen by Iván Mondragon PA-C under the supervision of Doctor Medina.
[2018-03-06] MEDS: Pravastatin 20 MG Tablet PO (21:52)
[2018-03-06] MEDS: DULoxetine Hcl 60 MG Capsule PO (21:52)
[2018-03-06] MEDS: Methocarbamol 750 MG Tablet PO (21:52)
[2018-03-07 03:20] VITALS: PULSE 96
[2018-03-07] MEDS: LORazepam 2 MG/ML Syringe 1 MG IV (03:32)
[2018-03-07] MEDS: 0.9% NaCl Peripheral Flush Adult/Peds IV (03:34)
[2018-03-07 04:30] VITALS: BP 155/107; PULSE 98; RESP 18; TEMP 36.5; O2SAT 96
[2018-03-07] MEDS: chlordiazePOXIDE 25 MG Capsule PO (06:24)
[2018-03-07] MEDS: Levothyroxine 150 MCG Tablet PO (06:24)
[2018-03-07] MEDS: Thiamine Hydrochloride 100 MG Tablet PO (07:56)
[2018-03-07] MEDS: Diclofenac 75 MG Tablet PO (07:56)
[2018-03-07] MEDS: Folic Acid 1 MG Tablet PO (07:56)
[2018-03-07] MEDS: Multivitamins,Therapeutic Tablet 1 TABLET PO (07:56)
[2018-03-07] MEDS: Loratadine 10 MG Tablet PO (09:10)
[2018-03-07] MEDS: Pantoprazole Sodium 40 MG Tablet PO (09:10)
[2018-03-07] MEDS: Losartan Potassium 100 MG Tablet PO (09:11)
[2018-03-07] MEDS: Fenofibrate 145 MG Tablet PO (09:11)
[2018-03-07] MEDS: Enoxaparin 40 MG/0.4 ML Syringe SC (09:11)
[2018-03-07 10:00] VITALS: BP 134/80; PULSE 106; PULSE 94; RESP 18; TEMP 36.8; O2SAT 98
[2018-03-07] MEDS: Acetaminophen 325 MG Tablet 650 MG PO (10:54)
--- NOTE | 2018-03-07 11:57 | PCM.TXEXTCAR ---
- Routine Orders/Code Status Suppository Type: Dulcolax 10mg Suppository Frequency: Daily PRN Code Status: Full Code - Wound(s) B/L LEGS-SCATTERED Wound Type: Abrasion Right Second Toe Wound Type: LOOSE TOENAIL - Problem/Diagnosis (1) Hyponatremia Status: Acute Current Visit: Yes (2) Alcohol withdrawal Status: Acute Current Visit: Yes (3) HTN (hypertension) Status: Chronic Current Visit: Yes (4) HLD (hyperlipidemia) Status: Chronic Current Visit: Yes (5) Hypothyroidism Status: Chronic Current Visit: Yes (6) Chronic back pain Status: Chronic Current Visit: Yes (7) Anxiety Status: Chronic Current Visit: Yes (8) Alcohol abuse Status: Chronic Current Visit: Yes - Allergies/Procedures Done in Hospital Allergies/Adverse Reactions: Allergies No Known Allergies Allergy (Verified 03/04/18 12:34) Procedures: None - Type of Care/Length of Stay Estimated LOS: Convalescent Care Less Than 30 days Type of Care Needed: Acute Rehab Rehab Potential: Fair Prognosis: Fair - Additional Orders/Day of Discharge Day of Discharge: 03/07/18 - Dietary and Speech Recommendations Dietitian Recommendations/Changes: Continue on cardiac/low cholesterol diet. Ensure Enlive on medpass if PO fails. - Follow Up Care Primary Care Physician: Luz Patino,Out of [Primary Care Provider] - Please follow up with your Primary Care Physician in: 2 weeks
[2018-03-07 12:00] VITALS: BP 144/99; PULSE 93; RESP 18; TEMP 36.8; O2SAT 95
[2018-03-07] MEDS: LORazepam 0.5 MG Tablet PO (12:06)
--- NOTE | 2018-03-07 15:04 | PCM.DC.SUM ---
Discharge Date and Diagnosis Date of Admission: 03/04/18 Date of Discharge: 03/07/18 - Primary Discharge Diagnosis EtOH abuse with Acute alcohol withdrawal Hyponatremia 2/2 beer potomania Hyperkalemia resolved Hypothyroidism HTN HLD Chronic back pain - Secondary Discharge Diagnosis Chronic Problems Alcohol abuse (Chronic) HTN (hypertension) (Chronic) HLD (hyperlipidemia) (Chronic) Hypothyroidism (Chronic) Chronic back pain (Chronic) Anxiety (Chronic) Hospital Course and Treatment Imaging Results: RAD/Lumbar Spine 2 or 3 Views IMPRESSION: Postoperative changes at L3-L4. No acute bony abnormality. Consultation: Nephrology-Dr. Maritnez Operations: None Procedures: None Summary of Care Provided: Physical exam on day of discharge: General: Resting comfortably NAD Psych: A/Ox3, very anxious affect HEENT: PEARRLA AT NC Neck: Supple NT CV: RRR no m/t/r/g/h Resp: CTA Abd: [id number] Soft NT no guarding or rigidity Ext: DP2+= no edema Skin: W/D normal turgor Lymph/Heme: No active bleeding or adenopathy Neuro: CN2-12 intact, resting tremor especially in hands. Hospital course: The patient is a 52 year old F with a hx of alcoholism, old back injury with prior surgeries and chronic pain, HTN, HLD, hypothyroidism, depression/anxiety, GERD, who presented to the ER with presented for alcohol detox and was found to be hyponatremic with a Na of 116 and had elevated potassium at 5.2. She was admitted to PCU and started on librium. She was given kayexalate for elevate K. She was given IV fluids and renal was consulted for her hyponatremia which was felt to be 2/2 beer potomania as she was drinking about [id number] beers per day. This resolved the first day. She had symptoms of withdrawal including tremor, anxiety, nausea and dry heaves. She tolerated the librium well. She was given robaxin and voltaren for her back pain which was controlled. She decided to pursue inpatient rehab in a detox facility. She remained in stable condition and was discharged when accepted. She will continue librium 25 q12 for 3 days or as directed by the accepting facility, and may continue volatren and robaxin. She will need follow up with her PCP. This patient was seen by Iván Mondragon PA-C under the supervision of Doctor Medina. [] Discharge Diet: Low fat/ Low Cholesterol, 2000 mg Sodium Diet Discharge Activity: Return to Normal Activity Home Medications: Medications to take at Discharge Diclofenac [Voltaren] 75 mg PO BIDCM 03/04/18 Duloxetine HCl 60 mg PO QHS 03/04/18 Fenofibrate Nanocrystallized [Triglide] 160 mg PO QHS 03/04/18 Losartan Potassium [Cozaar] 100 mg PO DAILY 03/04/18 Magic Mouth Wash 15 ml PO Q6H PRN PRN 03/04/18 Omeprazole 40 mg PO DAILY 03/04/18 Pravastatin [Pravachol] 20 mg PO QHS 03/04/18 Acetaminophen [Tylenol Tablet] 650 mg PO Q6H PRN PRN tablet 03/07/18 Chlordiazepoxide [Librium] 25 mg PO Q12H #5 cap 03/07/18 Folic Acid 1 mg PO DAILYCM tablet 03/07/18 Levothyroxine [Synthroid] 150 mcg PO DAILY@0600 tablet 03/07/18 Methocarbamol 750 mg PO Q6H PRN PRN tablet 03/07/18 Thiamine Hydrochloride [Vitamin B1] 100 mg PO DAILYCM tablet 03/07/18 Following Prescrptions Were Given to Patient: Chlordiazepoxide [Librium] 25 mg PO Q12H #5 cap Primary Care Physician: Luz Patino,Out of [Primary Care Provider] - Please follow up with your Primary Care Physician in: 2 weeks Disposition: Inpt Rehab Unit/Facility Minutes spent on discharge:: 35 Patient Condition:: Stable Medical Necessity - Tobacco Use Smoking Status: Former smoker Meaningful Use Info Meaningful Use Diagnoses (Choose all that apply): None applicable
== END 2018-03-07 12:55 | DRG 897 ==
LOC: ED 14:35 → PCU 15:18
PROVIDERS: Nurse Practitioner Family; Admitting Provider Student in an Organized Health Care Education/Training Program; Emergency Provider Emergency Medicine; Visit Provider Internal Medicine
DX: F10.239 Alcohol dependence with withdrawal, unspecified (principal); E87.1 Hypo-osmolality and hyponatremia; E78.5 Hyperlipidemia, unspecified; E03.9 Hypothyroidism, unspecified; I10 Essential (primary) hypertension; M54.9 Dorsalgia, unspecified; G89.29 Other chronic pain; E66.01 Morbid (severe) obesity due to excess calories; E87.5 Hyperkalemia; F32.9 Major depressive disorder, single episode, unspecified; K21.9 Gastro-esophageal reflux disease without esophagitis; Z87.891 Personal history of nicotine dependence; F41.9 Anxiety disorder, unspecified; Z68.32 Body mass index [BMI] 32.0-32.9, adult; Y90.9 Presence of alcohol in blood, level not specified
CPT/HCPCS: 36415; 72100; 80048; 80053; 80307; 80320; 81001; 82533; 83735; 83930; 83935; 84300; 84439; 84443; 85025; 93005; 97802; 99285; J7030; A4216; G0480; J2405